=== PATIENT | female | born 1995 | race Caucasian/White ===

== ENCOUNTER 2017-12-31 11:15 | Inpatient (IN) | payer OTHER ==
[~2017-12-31] VITALS: Ht 180.3 cm; Wt 63.5 kg
[~2017-12-31 11:15] MED LIST: CITRANATAL HAR1 EACH PO; FIORICET 325 MG1 TAB PO; FLEXERIL10 MG PO; IMITREX50 MG PO; MOTRIN 800MG T800 MG PO; PERCOCET 325 MG1 TA2 PO; PREDNISONE 20MG20 MG PO; ZOFRAN 4 MG TABL4 MG PO; ZOFRAN ODT4 M1 SL; ZOFRAN ODT4 MG PO
[2017-12-31 12:13] LABS: ABSOLUTE BASOPHIL COUNT 0 /CUMM (0.0-0.2); ABSOLUTE EOSINOPHIL COUNT 0.2 /CUMM (0.0-0.7); ABSOLUTE GRANULOCYTE CT 6.5 /CUMM (1.4-6.5); ABSOLUTE LYMPH COUNT 1.6 /CUMM (1.2-3.4); ABSOLUTE MONOCYTE COUNT 0.5 /CUMM (0.10-0.60); BASOPHIL % 0.3 % (0.0-2.0); GRANULOCYTE % 73.6 % (42.2-75.2); HEMATOCRIT 36.7 % (37-47); MEAN CORPUSCULAR HGB 28.9 PG (27.0-31.0); MEAN CORPUSCULAR HGB CONC 34.2 G/DL (33.0-37.0); MEAN CORPUSCULAR VOLUME 84.6 FL (81.0-99.0); MEAN PLATELET VOLUME 8.5 FL (7.4-10.4); PLATELET COUNT 233 /CUMM (130-400); RBC DISTRIBUTION WIDTH 13.4 % (11.5-14.5); RED BLOOD CELL CT 4.33 /CUMM (4.20-5.40); WHITE BLOOD CELL COUNT 8.8 /CUMM (4.8-10.8)
--- NOTE | 2017-12-31 12:40 | ULTRASOUND REPORT ---
EXAMINATION: US , VIABILITY CLINICAL INFORMATION: 22-year-old female with abdominal pain, nausea and vomiting. Presumptive diagnosis of distress. viability assessment. Gestational age (LMP) of 18 weeks, 5 days. COMPARISON: 10/29/2017 TECHNIQUE: Transabdominal sonographic imaging of the pelvis was performed FINDINGS: There is a single viable intrauterine gestation in breech presentation. Normal motion is identified. Normal volume of amniotic fluid is seen. Cervical canal is closed and measures approximately 3.5 cm in length. The anterior and fundal placenta has homogeneous echotexture. No periplacental hemorrhage. The heart rate is 142 bpm. The following measurements were obtained (gestational age in parentheses) Biparietal diameter, 4.43 cm (19 weeks, 3 days) Head circumference, 15.82 cm (18 weeks, 5 days Abdominal circumference, 14.23 cm (19 weeks, 5 days Femur length, 2.67 cm (19 weeks, 1 day) Overall, sonographic findings suggest gestational age of 19 weeks, which is concordant with clinical dates. Estimated weight is 263 g +/- 39 g, which is at the 57th percentile. The maternal left ovary is 2.7 x 4.7 x 2.2 cm. Color Doppler images with spectral waveforms show presence of normal arterial and venous flow within the left ovary. The right ovary is not identified. However, no right-sided adnexal masses are seen. No pelvic free fluid. IMPRESSION: 1. Single viable intrauterine gestation with ultrasound estimated age of 19 weeks. This is concordant with clinical dates. No acute -related complications are identified. 2. No pelvic free fluid.
--- NOTE | 2017-12-31 14:08 | ED GENERAL ADULT ---
History of Present Illness General Chief Complaint: General Adult Stated Complaint: ABD PAIN 5MO PREG +NAUSEA +VOMITTING Source: patient Exam Limitations: no limitations Allergies Coded Allergies: NO KNOWN ALLERGIES (07/19/15) Triage Note: PT STATES SHE IS 18 WEEKS AND STARTED WITH DIZZINESS LAST NIGHT AND TODAY THE DIZZINESS CONTINUES WITH N/V. . PT STATES SHE IS ON MEDICINE FOR NAUSEA AND DIZZINESS. STATES ROOM IS SPINNING AND SHOOTING PAIN IN HER LEFT SIDE Triage Nurses Notes Reviewed? yes Onset: Gradual Duration: day(s): Timing: constant : Yes Patient currently breastfeeds: No HPI: 22-year-old at 18 weeks 4 days gestation with a history of migraines presenting with dizziness since last night, and nausea/vomiting since this morning. Patient endorses a sensation of the room spinning, which is worse with rapid head movements or standing. Patient has been experiencing orthostatic hypotension throughout her , but states that this is different. Has been on diclegis without improvement. Also endorses mild left flank pain over the past several hours that began after several episodes of vomiting. Denies fevers, headache, tinnitus, URI symptoms, cough, vaginal bleeding, vaginal discharge, dysuria, hematuria. (Noemí URENA,April) Vital Signs & Intake/Output Vital Signs & Intake/Output Vital Signs Date Time Temp Pulse Resp B/P B/P Pulse O2 O2 Flow FiO2 Mean Ox Delivery Rate 12/31 2020 98.4 74 16 116/64 99 Room Air 12/31 1928 97.8 71 16 110/58 99 Room Air 12/31 1525 98.2 84 17 131/84 100 Room Air 12/31 1255 97.7 77 16 115/55 100 Room Air 12/31 1127 97.2 102 20 98/67 99 Room Air Reconcile Medications Cephalexin (Keflex) 500 MG CAPSULE 1 CAP PO BID UTI . Meclizine HCl 25 MG TABLET 25 MG PO TIDPRN PRN DIZZINESS . Ondansetron (Zofran Odt) 4 MG TAB.RAPDIS 1 TAB SL TID PRN nausea . Pnv59/Iron,Carb&Fum/FA/Dss/Dha (Citranatal [place] Capsule) 27 MG IRON-1 MG-50 MG-260 MG CAPSULE 1 CAP PO DAILY (Reported) (Felecia LYONS,Campbell Perez) Past History Travel History Traveled to [place] past 21 day No Medical History Any Pertinent Medical History? 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 No (April Painting) Review of Systems Review of Systems Constitutional: Reports: no symptoms. EENTM: Reports: no symptoms. Respiratory: Reports: no symptoms. Cardiovascular: Reports: no symptoms. GI: Reports: see HPI. Genitourinary: Reports: no symptoms. Musculoskeletal: Reports: no symptoms. Skin: Reports: no symptoms. Neurological/Psychological: Reports: see HPI. Hematologic/Endocrine: Reports: no symptoms. Immunologic/Allergic: Reports: no symptoms. (April Painting) Physical Exam Physical Exam General Appearance: alert, awake, moderate distress Head: atraumatic, normal appearance Eyes: Bilateral: normal appearance, PERRL, EOMI, other (no nystagmus). 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 No CVA/TIA Diagnosis: No Sepsis Present: No Sepsis Focused Exam Completed? No (April Painting) Progress Differential Diagnoses I considered the following diagnoses in my evaluation of the patient: [ peripheral vertigo versus hyperemesis gravidarum versus dehydration, low concern for central vertigo versus migraine versus renal stone versus UTI] Initial ED EKG: none (April Painting) Plan of Care: Orders Procedure Date/time Status Regular Diet 01/01 B Active Weight 12/31 2026 Active Vital Signs 12/31 2026 Active Teach/Educate 12/31 2026 Active Pain Treatment and Response 12/31 2026 Active Nutritional Intake, Monitor 12/31 2026 Active Isolation 12/31 2026 Active Intake & Output 12/31 2026 Active Patient Care Conference 12/31 2026 Active Activity/Ambulation 12/31 2026 Active Patient Data 12/31 1931 Active ED Holding Orders 12/31 172 Active Admit to inpatient 12/31 172 Active Vital Signs 12/31 172 Active Code Status 12/31 172 Active US-RENAL/KIDNEY 12/31 1345 Active Intake & Output 12/31 1158 Active CULTURE,URINE 12/31 114 Active URINALYSIS 12/31 112 Complete LIPASE 12/31 112 Complete COMPREHENSIVE METABOLIC PANEL 12/31 112 Complete CBC WITHOUT DIFFERENTIAL 12/31 112 Complete Laboratory Tests 12/31/17 1341: Urinalysis HEAVY H, Urine Color YEL, Urine Clarity HAZY H, Urine pH 7.0, Ur Specific [place] 1.015, Urine Protein NEG, Urine Ketones TRACE H, Urine Nitrite NEG, Urine Bilirubin NEG, Urine Urobilinogen 0.2, Ur Leukocyte Esterase TRACE H , Ur Microscopic SEDIMENT EXAMINED, Urine RBC 1-3, Urine WBC 1-3 H, Ur Epithelial Cells MOD H, Urine Bacteria MOD H, Urine Hemoglobin NEG, Urine Glucose NEG 12/31/17 1151: Anion Gap 11, Estimated GFR > 60, BUN/Creatinine Ratio 16.0, Glucose 83, Calcium 9.3, Total Bilirubin 0.2, AST 16, ALT 18, Alkaline Phosphatase 52, Total Protein 6.4, Albumin 3.7, Globulin 2.7, Albumin/Globulin Ratio 1.4, Lipase 94, CBC w Diff NO MAN DIFF REQ, RBC 4.33, MCV 84.6, MCH 28.9, MCHC 34.2, RDW 13.4, MPV 8.5 , Gran % 73.6, Lymphocytes % 18.5 L, Monocytes % 5.6, Eosinophils % 2.0, Basophils % 0.3, Absolute Granulocytes 6.5, Absolute Lymphocytes 1.6, Absolute Monocytes 0.5, Absolute Eosinophils 0.2, Absolute Basophils 0 Microbiology 12/31 1341 URINE ROUT: Urine Culture - RECD Labs unremarkable. Patient has been given IV fluids, meclizine, insight Medrol with no improvement. Patient still endorses dizziness, weakness, is unable to stand or ambulate. Patient appears weak, and has difficulty even lifting her head from the stretcher. Patient also with intractable emesis after both Zofran and Reglan. Discussed with the hospitalist and will place in [facility] for intractable vertigo and intractable emesis. Discussed with patient's OB doctor Zana who is aware of the admission and will see the patient during her admission. (April Painting) (Campbell Izquierdo MD) Departure Departure Disposition: STILL A PATIENT Condition: Stable Clinical Impression Primary Impression: Vertigo Secondary Impressions: Emesis, Second trimester Referrals: Elsa Warren DO (PCP/Family) Departure Forms: Customer Survey General Discharge Information Admission Note Spoke With: Zane Palomino MD Documentation of Exam: Documentation of any treatments & extenuating circumstances including Concerns Regarding Discharge (functional status, medication knowledge or non-compliance, living conditions, etc.) that warrant an admission rather than observation: [IV fluids, antiemetics, repeat doses of meclizine, serial lytes with repletion as necessary, OB evaluation] (April Painting) Departure Prescriptions: Current Visit Scripts Cephalexin (Keflex) 1 CAP PO BID #4 CAP . Meclizine HCl 25 MG PO TIDPRN PRN DIZZINESS #20 TAB . Ondansetron (Zofran Odt) 1 TAB SL TID PRN nausea #12 TAB . PA/FEATHER BALER Co-Sign Statement Statement: ED Attending supervision documentation- [X] I saw and evaluated the patient. I have also reviewed all the pertinent lab results and diagnostic results. I agree with the findings and the plan of care as documented in the PA's/FEATHER BALER's documentation. [X] I have reviewed the ED Record and agree with the PA's/FEATHER BALER's documentation. [] Additions or exceptions (if any) to the PAs/FEATHER BALER's note and plan are summarized below: [Patient has intractable vomiting and intractable dizziness. Patient is also 18 weeks . We have tried multiple different medications here in the emergency department without success. She will need admission to the hospital, neurology consultation, OB consultation, IV fluids, antiemetics] (Felecia LYONS,Campbell Perez) Critical Care Note Critical Care Note Critical Care Time: 30-74 min (April Painting) ED Attending Observation Initial Observation Note: I have seen and personally examined ALEJANDRINA NELSON on 12/31/17 at 2027. I agree with the current emergency department documentation. The disposition (admission or discharge) is uncertain at this time, she needs a period of observation for the following reason(s): The ED Nurse caring for this patient has been personally informed as to what the patient is being observed for. (April Painting)
[2017-12-31] MEDS ORDERED: DICLEGIS DR 101 EACH (19:48)
--- NOTE | 2017-12-31 20:38 | History & Physical ---
Placido Carvajal 12/31/172036: General Information and HPI MD Statement: I have seen and personally examined ALEJANDRINA NELSON and documented this H&P. The patient is a 22 year old F who presented with a patient stated chief complaint of [dizziness and vomiting]. Source of Information: patient Exam Limitations: no limitations History of Present Illness: Ms. Nelson is a 22 yo female, , currently 8 weeks , with a past medical history significant for migraines after the of her first child, for which she used to take proanolol and stopped once the migraines disipated. She has had one miscarriage. She presents to the ED with vertigo, nausea, and vomiting. Since the beginning of this she has been feeling nausea and vertigo, and was given diclegis which was originally helping, but since yesterday the nausea and vertigo have been significantly worse. She describes the vertigo as having the room spinning around her as well as the floor moving from under her. She vomited twice today. She describes the emesis as nonbloody. Lying on her right side seems to improve her symptoms. 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 She endorses she currently has a headache, left sided abdominal pain, and parathesias in her extremities. She denies fever, syncope, LOC, chills, chest pain, palpitations, diarrhea. Allergies/Medications Home Med list Doxylamine/Pyridoxine HCl (Diclegis Dr 10-10 MG Tablet) (Unknown Strength) TABLET.DR (Unknown Dose) N/V (Reported) Meclizine HCl 25 MG TABLET 25 MG PO TIDPRN PRN DIZZINESS Ondansetron (Zofran Odt) 4 MG TAB.RAPDIS 1 TAB SL TID PRN nausea Pnv59/Iron,Carb&Fum/FA/Dss/Dha (Citranatal [place] Capsule) 27 MG IRON-1 MG-50 MG-260 MG CAPSULE 1 CAP PO DAILY (Reported) Compliance With Home Meds: GOOD Past History Travel History Traveled to [place] past 21 day No Medical History Neurological: migraine EENT: NONE Cardiovascular: NONE Respiratory: NONE Gastrointestinal: NONE Hepatic: NONE Renal: NONE Musculoskeletal: NONE Psychiatric: NONE Endocrine: NONE Blood Disorders: NONE Cancer(s): 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 EENTM: Denies: blurred vision. Cardiovascular: Denies: chest pain, palpitations. Respiratory: Denies: short of breath. GI: Reports: abdominal pain, vomiting. Denies: constipation, diarrhea. Genitourinary: Denies: dysuria, frequency. Musculoskeletal: Reports: no symptoms. Skin: Reports: no symptoms. Neurological/Psychological: Reports: numbness, paresthesia. Hematologic/Endocrine: Reports: no symptoms. Immunologic/Allergic: Reports: no symptoms. All Other Systems: Reviewed and Negative Exam & Diagnostic Data Last 24 Hrs of Vital Signs/I&O Vital Signs Date Time Temp Pulse Resp B/P B/P Pulse O2 O2 Flow FiO2 Mean Ox Delivery Rate 12/31 2248 98.0 67 16 130/70 99 Room Air 12/31 2021 98.4 74 16 116/64 99 Room Air 12/31 1928 97.8 71 16 110/58 99 Room Air / 1525 98.2 84 17 131/84 100 Room Air / 1255 97.7 77 16 115/55 100 Room Air /04 1127 97.2 102 20 98/67 99 Room Air Intake & Output 07/05 0800 07/05 0000 07/04 1600 Intake Total 1000 Output Total Balance 1000 Intake, IV 1000 Patient 140 lb 150 lb Weight Weight Reported by Patient Reported by Patient Measurement Method Physical Exam General Appearance Alert, Oriented X3, Cooperative Skin Temp/Moisture Exam: Warm/Dry HEENT PERRLA, EOMI Neck Supple Cardiovascular Regular Rate, Normal S1, Normal S2 Lungs Clear to Auscultation Abdomen Normal Bowel Sounds, Soft Neurological Normal Extremities No Edema, Normal Pulses Assessment/Plan Assessment: Vitals on admission were Temperature of 97.2 Heart Rate 102, Respiratory Rate 20 , BP 98/67, and Oxygen Saturation 90% on Room Air. She had a WBC count of 8.8, H&H 12.5/26.7, platelet count, sodium, UN/8/0.5, blood glucose 83, and normal LFTs. Urinalysis was negative. ultrasound was done showing single viable intrauterine gestation with no acute related complications. Problem list; 1. Nausea and vomiting 2. Dizziness/vertigo 3. 4. History of migraine headaches 5. DVT ppx - Admit the patient to general medicine floor - Hold IV steroids until Ob sees pt - Ob consult - Zofran prn for nausea and vomiting - Meclizine prn for vertigo - Continue Pyridoxine/doxylamine (Diclegis) prn - Tylenol for migraine prn - Alps and subcutaneous Lovenox - Patient is full code As Ranked By This Provider Problem List: 1. Emesis 2. Vertigo 3. Headache 4. Second trimester Core Measures/Misc (03/16) Acute Coronary Syndrome ACS Diagnosis: No Congestive Heart Failure Congestive Heart Failure Diagnosis No Cerebrovascular Accident CVA/TIA Diagnosis: No VTE (View Protocol) VTE Risk Factors / No Mechanical VTE Prophylaxis d/t N/A MechProphylax Ordered No VTE Pharm Prophylaxis d/t NA PharmProphylax ordered Sepsis (View protocol) Sepsis Present: No If YES complete Sepsis Event Note If YES complete Sepsis Event Note Thomas LYONSZaynab 01/01/18 0322: Core Measures/Misc (03/16) Sepsis (View protocol) If YES complete Sepsis Event Note If YES complete Sepsis Event Note Resident Review Statement Resident Statement: examined this patient, discussed with internal communications specialist, agreed with internal communications specialist, discussed with family, reviewed EMR data (avail), reviewed images Other Findings: Ms. Nelson is a 22-year-old lady with past medical history significant for migraine headaches only presents with nausea and dizziness which started yesterday evening. Patient is , 18 weeks , she follows up with Dr. Spann, and has been on diclegis for nausea with relief. She states that since the start of her she has been lightheaded since the start of her status getting worse. Yesterday evening she was so dizzy that felt like the floor was moving under her feet. She also felt nauseous and she would turn sites at nighttime. When she awoke in the morning she felt extremely dizzy and nauseous and felt like the room was spinning. Her dizziness this better when she is on the right side but worse on the left side. She also reports headache. Has a history of migraine headaches and was started on propranolol by her neurologist but has not been using an for the past 1 year. Denies any fevers, since she drinks enough fluids and keep herself hydrated. She mentions having contractions and located discharge from her right breast a few weeks ago and was treated with antispasmodic and amoxicillin for presumed UTI by Dr. Spann. She also reports left flank pain but thinks this is likely muscular. Vitals on admission were Temperature of 97.2 Heart Rate 102, Respiratory Rate 20 , BP 98/67, and Oxygen Saturation 90% on Room Air. She had a WBC count of 8.8, H&H 12.5/26.7, platelet count, sodium, UN/8/0.5, blood glucose 83, and normal LFTs. Urinalysis was negative. ultrasound was done showing single viable intrauterine gestation with no acute related complications. She was given Zofran, meclizine 21 dose of IV Solu-Medrol 125 mg in the ER. Problem list; 1. Nausea and vomiting 2. Dizziness/vertigo 3. 4. History of migraine headaches - Admit the patient to general medicine floor. - Zofran as needed for nausea and vomiting - Meclizine as needed for vertigo - High School History Teacher consult - Pain managment. DVT prophylaxis; Alps and subcutaneous Lovenox Patient is full code Georgette LYONSZane 01/01/18 0349: General Information and HPI MD Statement: I have seen and personally examined LESLIEALEJANDRINA and documented this H&P. The patient is a 22 year old F who presented with a patient stated chief complaint of [dizziness and vomiting]. Allergies/Medications Allergies: Coded Allergies: NO KNOWN ALLERGIES (07/19/15) Past History Surgical History Surgical History: Review of Systems Comments 12 point review system as documented by resident Exam & Diagnostic Data Last 24 Hrs of Vital Signs/I&O Vital Signs Date Time Temp Pulse Resp B/P B/P Pulse O2 O2 Flow FiO2 Mean Ox Delivery Rate 12/31 2248 98.0 67 16 130/70 99 Room Air 12/31 2020 98.4 74 16 116/64 99 Room Air 12/31 1928 97.8 71 16 110/58 99 Room Air 12/31 1525 98.2 84 17 131/84 100 Room Air 07/04 1255 97.7 77 16 115/55 100 Room Air 12/31 1127 97.2 102 20 98/67 99 Room Air Intake & Output 01/01 0800 07 0000 12/31 1600 Intake Total 1000 Output Total Balance 1000 Intake, IV 1000 Patient 140 lb 150 lb Weight Weight Reported by Patient Reported by Patient Measurement Method Physical Exam General Appearance Alert, Oriented X3, Cooperative Skin No Rashes HEENT Atraumatic, PERRLA, EOMI Neck Supple Cardiovascular Regular Rate, Normal S1, Normal S2 Lungs Clear to Auscultation Abdomen Normal Bowel Sounds, Soft Extremities No Clubbing, No Edema, Normal Pulses Last 24 Hrs of Labs/[place]: Laboratory Tests 12/31/17 1341: Urinalysis HEAVY H, Urine Color YEL, Urine Clarity HAZY H, Urine pH 7.0, Ur Specific [place] 1.015, Urine Protein NEG, Urine Ketones TRACE H, Urine Nitrite NEG, Urine Bilirubin NEG, Urine Urobilinogen 0.2, Ur Leukocyte Esterase TRACE H , Ur Microscopic SEDIMENT EXAMINED, Urine RBC 1-3, Urine WBC 1-3 H, Ur Epithelial Cells MOD H, Urine Bacteria MOD H, Urine Hemoglobin NEG, Urine Glucose NEG 12/31/17 1151: Anion Gap 11, Estimated GFR > 60, BUN/Creatinine Ratio 16.0, Glucose 83, Calcium 9.3, Total Bilirubin 0.2, AST 16, ALT 18, Alkaline Phosphatase 52, Total Protein 6.4, Albumin 3.7, Globulin 2.7, Albumin/Globulin Ratio 1.4, Lipase 94, CBC w Diff NO MAN DIFF REQ, RBC 4.33, MCV 84.6, MCH 28.9, MCHC 34.2, RDW 13.4, MPV 8.5 , Gran % 73.6, Lymphocytes % 18.5 L, Monocytes % 5.6, Eosinophils % 2.0, Basophils % 0.3, Absolute Granulocytes 6.5, Absolute Lymphocytes 1.6, Absolute Monocytes 0.5, Absolute Eosinophils 0.2, Absolute Basophils 0 Microbiology 12/31 1341 URINE ROUT: Urine Culture - RECD Core Measures/Misc (03/16) Sepsis (View protocol) If YES complete Sepsis Event Note If YES complete Sepsis Event Note Attending MD Review Statement Attending Statement Attending MD Statement: examined this patient, discuss w/resident/PA/STICK ROLLER Attending Assessment/Plan: This patient is a 22-year-old white female was 18 weeks . Her has been complicated with nausea and vomiting however over the last several days the patient has developed significant vertigo. She was given outpatient medications with no resolution. She presented to the emergency department were several attempts were made to treat her vertigo without success. The patient is followed by Dr. Spann who is planning on seeing the patient in the a.m. Per the ED. My visit she is feeling a little more comfortable and getting some sleep. Past medical history, social history, family history and review of systems per resident Physical exam temperature is 90.8 heart rate 67 respiration 16 blood pressure is 130/70 pulse ox 99% Awake alert oriented 3 Pupils equal and reactive to light and accommodation Neck supple no JVD Lungs clear to auscultation bilaterally Heart regular rate and rhythm Abdomen soft nontender nondistended No neurologic deficit Labs are unremarkable urine culture pending ultrasound reviewed Assessment and plan this patient is a 22-year-old white female with severe nausea vomiting and dizziness. She was given steroids in the ED with the nausea vomiting and dizziness. We'll review with team possible medications to treat her underlying symptoms. Plan to have obstetrics consult in the a.m.
[2017-12-31 22:48] VITALS: BP 130/70
[2018-01-01 07:08] VITALS: BP 104/48
--- NOTE | 2018-01-01 08:53 | PN- Housestaff ---
German Mendez 01/01/18 0853: Subjective Follow-up For: hyperemesis Subjective: Patient was admitted overnight. Examined bedside this morning. Patient states that she still dizzy feels like the floor is floating around her. Denies any vomiting at time of interview, however states that she is nauseous. States that her previous pregnancies she did not experience this problem. States that the medication she has been giving has helped her. States that she has not gotten up, as she feels like she is too dizzy to do that. Does admit to some mild abdominal discomfort, does not endorse any burning or increased frequency or urgency however. Review of Systems Constitutional: Reports: see HPI. Objective Last 24 Hrs of Vital Signs/I&O Vital Signs Date Time Temp Pulse Resp B/P B/P Pulse O2 O2 Flow FiO2 Mean Ox Delivery Rate 01/01 0708 98.1 67 18 104/48 98 12/31 2248 98.0 67 16 130/70 99 Room Air 12/31 2021 98.4 74 16 116/64 99 Room Air 12/31 1928 97.8 71 16 110/58 99 Room Air 12/31 1525 98.2 84 17 131/84 100 Room Air Intake & Output 01/01 1600 07/ 0800 07/05 0000 Intake Total 240 Output Total Balance 240 Intake, Oral 240 Patient 140 lb Weight Weight Reported by Patient Measurement Method Physical Exam General Appearance: Alert, Oriented X3, Cooperative, Mild Distress Skin Temp/Moisture Exam: Warm/Dry HEENT: Mucous Membr. moist/pink Cardiovascular: Regular Rate, Normal S1, Normal S2 Lungs: Clear to Auscultation, Normal Air Movement Abdomen: Soft, , suprapubic tenderness Neurological: Normal Speech, Sensation Intact Extremities: No Edema, Normal Pulses Assessment/Plan Assessment: There is a 22-year-old approximately 8 weeks female with a past medical history of migraines, being treated by her neurologist, presents with nausea and vomiting in the setting of . Her urinalysis showed bacteria , and we are treating her for a UTI. #Urinary tract infection culture and sensitivities. #Nausea/vomiting # DVT prophylaxis Disposition Problem List: 1. Emesis Pain Ratin Pain Location: Suprapubic Pain Goal: Pain 7 or less Pain Plan: IV Tylenol, PRN meds Tomorrow's Labs & Rationales: NA Kevan Purcell 01/01/18 1200: Attending MD Review Statement Attending Statement Attending MD Statement: examined this patient, discuss w/resident/PA/ENTRY LEVEL BUYER, agreed w/resident/PA/ENTRY LEVEL BUYER, discussed with family, reviewed EMR data (avail), discussed with nursing, discussed with case mgmt, reviewed images, amended to note Attending Assessment/Plan: Patient with hyperemesis in first trimester followed by REGULATOR ASSEMBLER Dr Spann as outpatient failed oral therpay and multiple doses of meclizine in ER and one dose of steroid without much relief is being admitted to inpatient medical services. She has moderate bacteria in urine and mild suprapubic discomfort for probable UTI. Will give empiric ceftriaxone for now and await final urine culture. REGULATOR ASSEMBLER is consulted and follow recommendations. is viable, avoid teratogenic drugs. gi/dvt prophyalxis full code Plan of care discussed with patient bedside and she is in agreemnt.
[2018-01-01 08:57] LABS: ABSOLUTE BASOPHIL COUNT 0 /CUMM (0.0-0.2); ABSOLUTE EOSINOPHIL COUNT 0 /CUMM (0.0-0.7); ABSOLUTE GRANULOCYTE CT 8.7 /CUMM (1.4-6.5); ABSOLUTE LYMPH COUNT 1.6 /CUMM (1.2-3.4); ABSOLUTE MONOCYTE COUNT 0.6 /CUMM (0.10-0.60); BASOPHIL % 0.2 % (0.0-2.0); EOSINOPHIL % 0.1 % (0-5); GRANULOCYTE % 79.7 % (42.2-75.2); HEMATOCRIT 33.5 % (37-47); MEAN CORPUSCULAR HGB CONC 34.2 G/DL (33.0-37.0); MEAN CORPUSCULAR VOLUME 84.8 FL (81.0-99.0); MEAN PLATELET VOLUME 8.6 FL (7.4-10.4); PLATELET COUNT 249 /CUMM (130-400); RBC DISTRIBUTION WIDTH 13.5 % (11.5-14.5); RED BLOOD CELL CT 3.95 /CUMM (4.20-5.40); WHITE BLOOD CELL COUNT 10.9 /CUMM (4.8-10.8)
--- NOTE | 2018-01-01 11:45 | Cons- OBGYN ---
General Information and HPI Consulting Request Date of Consult: 01/01/18 Requested By: Kevan Purcell MD Reason for Consult: MY PT History of Present Illness: pt admitted for hyperemesis Allergies/Medications Allergies: Coded Allergies: NO KNOWN ALLERGIES (07/19/15) Home Med List: Doxylamine/Pyridoxine HCl (Diclegis Dr 10-10 MG Tablet) (Unknown Strength) TABLET.DR (Unknown Dose) N/V (Reported) Ondansetron (Zofran Odt) 4 MG TAB.RAPDIS 1 TAB SL TID PRN nausea Pnv59/Iron,Carb&Fum/FA/Dss/Dha (Citranatal [place] Capsule) 27 MG IRON-1 MG-50 MG-260 MG CAPSULE 1 CAP PO DAILY (Reported) Past History Medical History Blood Transfusion Hx: No Neurological: migraine EENT: NONE Cardiovascular: NONE Respiratory: NONE Gastrointestinal: NONE Hepatic: NONE Renal: NONE Musculoskeletal: NONE Psychiatric: NONE Endocrine: NONE Blood Disorders: NONE Cancer(s): NONE 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 Home Services at Home: None Smoking Status: Former Smoker ETOH Use: denies use Illicit Drug Use: denies illicit drug use Exam & Diagnostic Data Vital Signs and I&O Vital Signs Date Time Temp Pulse Resp B/P B/P Pulse O2 O2 Flow FiO2 Mean Ox Delivery Rate 01/01 0708 98.1 67 18 104/48 98 / 2248 98.0 67 16 130/70 99 Room Air 12/31 2021 98.4 74 16 116/64 99 Room Air 12/31 1928 97.8 71 16 110/58 99 Room Air 12/31 1525 98.2 84 17 131/84 100 Room Air 12/31 1255 97.7 77 16 115/55 100 Room Air Intake & Output 01/01 1600 01/01 0800 / 0000 12/31 1600 12/31 0800 12/31 0000 Intake Total 240 1000 Output Total Balance 240 1000 Intake, IV 1000 Intake, Oral 240 Patient 140 lb 150 lb Weight Weight Reported by Patient Reported by Patient Measurement Method Physical Exam: pe petite wf in nad abd soft nt gravid ext -edema -homans Assessment/Plan Assessment/Plan assess iup at19 weeks plan venodyne ivf Consult Acknowledgment - Thank you for your consult request.
[2018-01-01 14:04] VITALS: BP 116/70
[2018-01-01] MEDS ORDERED: MECLIZINE HCL25 MG PO (16:09)
--- NOTE | 2018-01-01 16:10 | Patient Discharge Instructions ---
Discharge Instructions General Discharge Information Special Instructions: - Please follow up with your primary care physician within 1-2 weeks of discharge. Inform your primary care physician of this admission to [facility]. - Continue your current medications per discharge instructions. - Please watch for these problems: Fever, Chills, Nausea, Vomiting, Shortness of Breath, Productive Cough, Chest Pain/Discomfort, Abdominal Pain, Active Bleeding or Bloody urine/stool. Diet Continue normal diet: Yes Activity Full Activity/No Limits: Yes Acute Coronary Syndrome Inclusion Criteria At DC or during hospital stay patient has or had the following: ACS DIAGNOSIS No Discharge Core Measures Meds if any: Prescribed or Continued at Discharge Meds if any: NOT Prescribed or Continued at Discharge Congestive Heart Failure Inclusion Criteria At DC or during hospital stay patient has or had the following: CHF DIAGNOSIS No Discharge Core Measures Meds if any: Prescribed or Continued at Discharge Meds if any: NOT Prescribed or Continued at Discharge Cerebrovascular accident Inclusion Criteria At DC or during hospital stay patient has or had the following: CVA/TIA Diagnosis No Discharge Core Measures Meds if any: Prescribed or Continued at Discharge Meds if any: NOT Prescribed or Continued at Discharge Venous thromboembolism Inclusion Criteria VTE Diagnosis No VTE Type NONE VTE Confirmed by (Test) NONE Discharge Core Measures - Per Current guidelines, there needs to be overlap - treatment for the first 5 days of Warfarin therapy. - If discharged on Warfarin prior to 5 days of - overlap therapy, the patient will need to be - assessed for post discharge needs including - *Post discharge parental anticoagulation - *Warfarin and/or parental anticoagulation education - *Follow up date to check INR post discharge At least 5 days overlap therapy as Inpatient No Meds if any: Prescribed or Continued at Discharge Note: Overlap Therapy is Warfarin and Anticoagulant Meds if any: NOT Prescribed or Continued at Discharge
[2018-01-01 21:48] VITALS: BP 140/78
[2018-01-02 06:20] VITALS: BP 112/54
--- NOTE | 2018-01-02 08:14 | PN- Housestaff ---
See Addendum Subjective Follow-up For: Hyperemesis Subjective: Patient had a headache which resolved with Tylenol overnight. denies fever/ chills/night sweats/chest pain/shortness of breath/abdominal pain/burning with urination/lower extremity edema. States she is a little dizzy but feels better than yesterday, states she feels ready to be discharged. Review of Systems Constitutional: Reports: see HPI. Objective Last 24 Hrs of Vital Signs/I&O Vital Signs Date Time Temp Pulse Resp B/P B/P Pulse O2 O2 Flow FiO2 Mean Ox Delivery Rate 01/03 620 98.2 63 20 112/54 98 01/01 2148 98.0 74 18 140/78 100 07 1404 98.0 70 18 116/70 98 Room Air Intake & Output 01/02 1600 01/02 0800 01/02 0000 Intake Total 735 Output Total Balance 735 Intake, IV 535 Intake, Oral 200 Number 0 Bowel Movements Physical Exam General Appearance: Alert, Oriented X3, Cooperative, No Acute Distress Skin: No Breakdown Skin Temp/Moisture Exam: Warm/Dry Cardiovascular: Regular Rate, Normal S1, Normal S2 Lungs: Clear to Auscultation, Normal Air Movement Abdomen: Soft, No Tenderness, Neurological: Sensation Intact Extremities: No Edema Current Medications: Current Medications Sig/Ammy Start time Last Medication Dose Route Stop Time Status Admin Acetaminophen 650 MG .STK-MED ONE 01/01 1520 DC PO 01/01 1521 Acetaminophen 650 MG Q6-PRN PRN 01/01 0600 DCD 01/01 PO 1736 Enoxaparin Sodium 40 MG DAILY 01/01 0900 DCD 01/01 SC 1037 Meclizine HCl 25 MG TIDPRN PRN 01/01 0115 DCD 01/01 PO 1525 Multivitamins 1 TAB DAILY 01/01 1330 DCD 01/02 PO 0952 Ondansetron HCl 4 MG Q8P PRN 01/01 0100 DCD 07 IV 1526 Sodium Chloride 1,000 ML Q13H 01/01 1000 DC 07/ IV 01/01 2259 1018 Assessment/Plan Assessment: There is a 22-year-old approximately 8 weeks female with a past medical history of migraines, being treated by her neurologist, presents with nausea and vomiting dizziness and vertigo in the setting of . Her urinalysis showed bacteria, and we are treating her for a UTI. #Urinary tract infection however she will be prescribed Keflex to complete upon discharge. #Nausea/vomitingresolving # DVT prophylaxis Discharge to home today. Problem List: 1. Emesis 2. Vertigo Pain Ratin Pain Location: NA Pain Goal: Remain pain free Pain Plan: As needed Tomorrow's Labs & Rationales: None Discharge Plan Discharge Disposition: home Stable for Discharge? Yes Anticipated Discharge (Day): today
[2018-01-02] MEDS ORDERED: ZOFRAN ODT4 M1 SL ×2 (08:55→11:21)
[2018-01-02] MEDS ORDERED: KEFLEX500 M1 PO ×2 (09:42→11:21)
[2018-01-02] MEDS ORDERED: MECLIZINE HCL25 MG PO (11:21)
--- NOTE | 2018-01-02 11:39 | Discharge Summary ---
Visit Information Visit Dates Admission Date: 12/31/17 Discharge Date: 01/02/18 Hospital Course Course Attending Physician: Kevan Purcell MD Primary Care Physician: [facility] Course: Ms. Gomez is a 22-year-old lady with past medical history significant for migraine headaches only presents with nausea and dizziness which started yesterday evening. Patient is , 18 weeks , she follows up with Dr. Spann, and has been on diclegis for nausea with relief. She states that since the start of her she has been lightheaded since the start of her status getting worse. Yesterday evening she was so dizzy that felt like the floor was moving under her feet. She also felt nauseous and she would turn sites at nighttime. When she awoke in the morning she felt extremely dizzy and nauseous and felt like the room was spinning. Her dizziness this better when she is on the right side but worse on the left side. She also reports headache. Has a history of migraine headaches and was started on propranolol by her neurologist but has not been using an for the past 1 year. Denies any fevers, since she drinks enough fluids and keep herself hydrated. She mentions having contractions and located discharge from her right breast a few weeks ago and was treated with antispasmodic and amoxicillin for presumed UTI by Dr. Spann. She also reports left flank pain but thinks this is likely muscular. Vitals on admission were Temperature of 97.2 Heart Rate 102, Respiratory Rate 20 , BP 98/67, and Oxygen Saturation 90% on Room Air. She had a WBC count of 8.8, H&H 12.5/26.7, platelet count, sodium, UN/8/0.5, blood glucose 83, and normal LFTs. Urinalysis was negative. ultrasound was done showing single viable intrauterine gestation with no acute related complications. She was given Zofran, meclizine 21 dose of IV Solu-Medrol 125 mg in the ER. She was admitted to general medicine floor. She was treated with Zofran as needed for nausea and vomiting and meclizine as needed for vertigo. Her urinalysis showed trace leukocyte esterase and moderate urine bacteria, and she was given empiric ceftriaxone 1 dose IV and treated for UTI. Service Representative was consulted, who will follow up with patient upon discharge. Patient improved clinically overnight, and felt ready to be discharged on the sixth. She remained afebrile, and denied complaints. She was given p.o. Keflex, and was told to follow-up closely with SAND BLASTER and her PCP. Urine culture had no growth after 2 days, and will be followed up closely as well. Allergies: Coded Allergies: NO KNOWN ALLERGIES (07/19/15) Significant Procedures: ultrasound showed viable intrauterine without complication. Pertinent Lab Results: Urinalysis showed moderate bacteria, trace leukocyte esterase. WBCs went from 8.8-10.9 on January 01, however that could be due to the IV Solu- Medrol she received in the emergency department. Patient was without systemic symptoms, asymptomatic. Disposition Summary Disposition Principal Diagnosis: Urinary tract infection Additional Diagnosis: Vertigo Discharge Disposition: home or self care Discharge Instructions General Discharge Information Code Status: Full Code Patient's Diet: As tolerated Patient's Activity: As tolerated Follow-Up Instructions/Appts: - Please follow up with your promotions specialist within 1-2 weeks of discharge. - Please follow up with your primary care physician within 1-2 weeks of discharge. Inform your primary care physician of this admission to [facility]. - Continue your current medications per discharge instructions. - Please watch for these problems: Fever, Chills, Nausea, Vomiting, Shortness of Breath, Productive Cough, Chest Pain/Discomfort, Abdominal Pain, Active Bleeding or Bloody urine/stool. Medications at Discharge Discharge Medications: Stop taking the following medications: Doxylamine/Pyridoxine HCl (Talisha Lanier 10-10 MG Tablet) (Unknown Strength) TABLET. Continue taking these medications: Pnv59/Iron,Carb&Fum/FA/Dss/Dha (Citranatal [place] Capsule) 27 MG IRON-1 MG-50 MG-260 MG CAPSULE 1 Capsule ORAL DAILY Qty = 90 Comments: NOT GIVEN Start taking the following new medications: Cephalexin (Keflex) 500 MG CAPSULE 1 Capsule ORAL TWICE DAILY Qty = 4 No Refills Instructions: . Comments: Last Taken: NOT GIVEN Meclizine HCl (Meclizine HCl) 25 MG TABLET 25 Milligram ORAL THREE TIMES A DAY NEEDED as needed for DIZZINESS Qty = 20 No Refills Instructions: . Comments: Last Taken: 01/01/18 Time: 1525 The following medications have been changed: Old: Ondansetron (Zofran Odt) 4 MG TAB.RAPDIS 1 Tablet SUBLINGUAL THREE TIMES DAILY as needed for nausea Qty = 12 New: Ondansetron (Zofran Odt) 4 MG TAB.RAPDIS 1 Tablet SUBLINGUAL THREE TIMES DAILY as needed for nausea Qty = 12 Instructions: . Comments: Last Taken: 01/01/18 Time: 5222 Copies To: Zana LYONS,Yolanda Ortiz
== END 2018-01-02 11:00 | DRG 781 ==
LOC: ERH 11:15 → ERHI 17:27 → 2NB 17:27 → ENTRNSPT 19:21 → DELTRNSPT 19:22 → ENTRNSPT 20:27 → EDTRNSPT 20:46 → EDTRNSPTSTS 20:46 → 2NB 20:54 → CMPTRNSPT 21:08 → 2NB 01-01 07:53 → ENPENDDIS 01-02 09:47 → ENTRNSPT 01-02 10:50 → EDTRNSPT 01-02 10:54 → EDTRNSPTSTS 01-02 10:54 → 2NB 01-02 11:00 → CMPTRNSPT 01-02 11:08
PROVIDERS: Internal Medicine; Physician Assistant Medical
DX: O21.9 Vomiting of pregnancy, unspecified (principal); O23.42 Unspecified infection of urinary tract in pregnancy, second trimester; Z3A.18 18 weeks gestation of pregnancy; O26.892 Other specified pregnancy related conditions, second trimester; B96.89 Other specified bacterial agents as the cause of diseases classified elsewhere
CPT/HCPCS: 2NBSP; 36592; 81001; 82436; 87086; 93005; 93010; 97112-GO; 97116-GO; 97161-GP; J0131; J0696; J1650; J2405; J2930